=== PATIENT | male | born 1980 | race American Indian/Alaskan Native ===

== ENCOUNTER 2021-04-19 14:42 | Emergency (ER) | payer OTHER, BC ==
[2021-04-19 15:10] VITALS: BP 122/73
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
[2021-04-19] MEDS ORDERED: IBUPROFEN 800 MG TAB PO ONE (16:42)
== END 2021-04-19 17:53 | disposition home or self-care (01) ==
LOC: ED 14:42
DX: S29.012A Strain of muscle and tendon of back wall of thorax, initial encounter (principal); M51.34 Other intervertebral disc degeneration, thoracic region; V49.49XA Driver injured in collision with other motor vehicles in traffic accident, initial encounter; Y93.89 Activity, other specified; Y92.89 Other specified places as the place of occurrence of the external cause; Y99.8 Other external cause status
CPT/HCPCS: 72080; 99283